=== PATIENT | female | born 1995 | race Caucasian/White ===

== ENCOUNTER 2018-02-18 17:37 | Emergency (ER) | payer MEDICAID ==
--- NOTE | 2018-02-18 19:20 | ED ---
General Adult HPI - General Chief complaint: GI Bleed Stated complaint: vomiting blood Time Seen by Provider: 02/18/18 18:45 Source: patient, family, RN notes reviewed Mode of arrival: ambulatory Limitations: no limitations - History of Present Illness Initial comments: 22-year-old female without any past medical history presents to the emergency department for a chief complaint of hematemesis 3. Patient states this occurred about 2 hours prior to arrival. She states that she did have some abdominal pain at that time and felt nauseous. However, patient states she is feeling much better at this time. She did have any abdominal pain or nausea at this time. She states she has not vomited since. Patient denies a history of similar occurrences. She denies history of ulcers. She denies any blood in the stool. Patient has no other complaints at this time including shortness of breath, chest pain, headache, or visual changes. - Related Data Home Medications Medication Instructions Recorded Confirmed Norgestimate-Ethinyl Estradiol 1 tab PO DAILY 02/18/18 02/18/18 [Ortho Tri-Cyclen 28 Tablet] Previous Rx's Medication Instructions Recorded Famotidine [Pepcid] 20 mg PO BID #20 tablet 02/18/18 Allergies Allergy/AdvReac Type Severity Reaction Status Date / Time Penicillins Allergy Rash/Hives Verified 02/18/18 19:09 Review of Systems ROS Statement: Those systems with pertinent positive or pertinent negative responses have been documented in the HPI. ROS Other: All systems not noted in ROS Statement are negative. Past Medical History Past Medical History: No Reported History History of Any Multi-Drug Resistant Organisms: None Reported Past Surgical History: No Surgical Hx Reported Past Psychological History: No Psychological Hx Reported Smoking Status: Never smoker Past Alcohol Use History: None Reported Past Drug Use History: None Reported General Exam Limitations: no limitations General appearance: alert, in no apparent distress (She does well-appearing, pleasant and cooperative.) Head exam: Present: atraumatic, normocephalic, normal inspection Eye exam: Present: normal appearance, PERRL, EOMI. Absent: scleral icterus, conjunctival injection, periorbital swelling ENT exam: Present: normal exam, mucous membranes moist Neck exam: Present: normal inspection, full ROM. Absent: tenderness, meningismus, lymphadenopathy Respiratory exam: Present: normal lung sounds bilaterally. Absent: respiratory distress, wheezes, rales, rhonchi, stridor Cardiovascular Exam: Present: regular rate, normal rhythm, normal heart sounds. Absent: systolic murmur, diastolic murmur, rubs, gallop, clicks GI/Abdominal exam: Present: soft, normal bowel sounds. Absent: distended, tenderness (No tenderness noted of the abdomen whatsoever), guarding, rebound, rigid Neurological exam: Present: alert, oriented X3, CN II-XII intact Psychiatric exam: Present: normal affect, normal mood Course Vital Signs 02/18/18 02/18/18 17:45 19:30 Temperature 97.5 F L 98.5 F Pulse Rate 89 70 Respiratory 20 18 Rate Blood Pressure 107/72 112/76 O2 Sat by Pulse 98 96 Oximetry Medical Decision Making - Medical Decision Making 22-year-old female presents for hematemesis 3 earlier today. Patient states she did have pain and nausea at that time. However since her arrival in the emergency department all symptoms have completely resolved. She states she is having much better. She states she wants to go home and does not want any testing done. Vitals are within acceptable limits. Patient is normotensive. She does not have any tenderness on exam. I did discuss recommended workup such as x-ray and labs to evaluate hemoglobin. Patient refuses this stating she feels febrile follow-up with primary. Patient will be discharged home with Pepcid. She will also be given the number to the GI specialists. She will return if she has any worsening symptoms. This was discussed with Dr. Reyes. Disposition Clinical Impression: Hematemesis Disposition: HOME SELF-CARE Condition: Good Instructions: Gastrointestinal Bleeding (ED), Hematemesis (ED) Additional Instructions: Please follow up with primary care in 1-2 days. You may also follow-up with GI. Take Pepcid as directed. Return to the emergency department if you have any worsening symptoms Prescriptions: Famotidine [Pepcid] 20 mg PO BID #20 tablet Is patient prescribed a controlled substance at d/c from ED?: No Referrals: Junaid Welsh DO [Primary Care Provider] - 1-2 days Louann Bae MD [STAFF PHYSICIAN] - 1-2 days Time of Disposition: 19:19
[2018-02-18 19:31] VITALS: BP 112/76; PULSE 70; RESP 18; TEMP 98.5
== END 2018-02-18 19:30 | disposition home or self-care (01) ==
LOC: EC 17:37
DX: K92.0 Hematemesis (principal); R10.9 Unspecified abdominal pain; Z88.0 Allergy status to penicillin; Z79.3 Long term (current) use of hormonal contraceptives
CPT/HCPCS: 99284

== ENCOUNTER → 2019-03-24 | Outpatient (CLI) | payer OTHER ==
--- NOTE | 2019-03-24 16:36 | XR ---
EXAMINATION TYPE: XR lumbar spine 2 or 3V DATE OF EXAM: 03/24/2019 COMPARISON: None HISTORY: Back pain TECHNIQUE: Three-view lumbar spine FINDINGS: There 5 lumbar-type vertebral bodies. Pedicles are intact. Disc heights are preserved. Vert ebral body heights are preserved. Alignment is unremarkable. IMPRESSION: 1. Normal three-view lumbar spine
--- NOTE | 2019-03-24 16:36 | XR ---
EXAMINATION TYPE: XR thoracic spine complete DATE OF EXAM: 03/24/2019 COMPARISON: None HISTORY: Muscle strain fashion tendon TECHNIQUE: Thoracic spine is examined in 3 projections. FINDINGS: There are 12 thoracic type vertebral bodies. Pedicles are intact. Disc heights are preserve d. Vertebral body heights are preserved. Alignment is normal. IMPRESSION: 1. No acute osseous abnormality.
== END | disposition home or self-care (01) ==
LOC: RADXRMAIN 16:09
PROVIDERS: ATTEND Emergency Medicine
DX: M54.6 Pain in thoracic spine (principal); S39.012A Strain of muscle, fascia and tendon of lower back, initial encounter
CPT/HCPCS: 72072; 72100

== ENCOUNTER 2019-07-13 08:12 | Emergency (ER) | payer OTHER, MEDICAID ==
[2019-07-13 08:17] VITALS: BP 116/66; PULSE 104; RESP 18; TEMP 98.2
--- NOTE | 2019-07-13 08:34 | ED ---
Back Pain HPI - General Source: patient Limitations: physical limitation <Maria D Meyer - Last Filed: 07/13/19 08:35> <Silvia Boo - Last Filed: 07/14/19 02:23> - General Chief Complaint: Back Pain/Injury Stated Complaint: Back pain Time Seen by Provider: 07/13/19 08:20 - History of Present Illness Initial Comments: 24-year-old female presenting today for chief complaint of low back pain. Patient denies any fevers loss of bowel bladder control urinary retention loss of sensation or weakness of the lower extremities. Patient states the pain does not radiate at this time she states she used to have a slight sensation in her right buttock that has resolved. 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 Denies IVDU, fevers, cancer. Patient appears well on arrival ambulatory. No distress. Afebrile. Patient requesting MRI as her original from PCP was cancelled se condary to covid 19. Patient has no additional complaints, no new injury/symptoms. (Maria D Meyer) - Related Data Home Medications Medication Instructions Recorded Confirmed Norgestimate-Ethinyl Estradiol 1 tab PO DAILY 02/18/18 02/18/18 [Ortho Tri-Cyclen 28 Tablet] Previous Rx's Medication Instructions Recorded Famotidine [Pepcid] 20 mg PO BID #20 tablet 02/18/18 Allergies Allergy/AdvReac Type Severity Reaction Status Date / Time Penicillins Allergy Rash/Hives Verified 07/13/19 08:17 Review of Systems ROS Other: All systems not noted in ROS Statement are negative. <Maria D Meyer - Last Filed: 07/13/19 08:35> ROS Other: All systems not noted in ROS Statement are negative. <Silvia Boo - Last Filed: 07/14/19 02:23> ROS Statement: Those systems with pertinent positive or pertinent negative responses have been documented in the HPI. Past Medical History Past Medical History: No Reported History History of Any Multi-Drug Resistant Organisms: None Reported Past Surgical History: No Surgical Hx Reported Past Psychological History: No Psychological Hx Reported Smoking Status: Never smoker Past Alcohol Use History: None Reported Past Drug Use History: None Reported <Maria D Meyer - Last Filed: 07/13/19 08:35> General Exam Limitations: physical limitation <Maria D Meyer - Last Filed: 07/13/19 08:35> - General Exam Comments Initial Comments: General: The patient is awake and alert, in no distress Eye: Pupils are equal, round and reactive to light, extra-ocular movements are intact. No nystagmus. There is normal conjunctiva bilaterally. No signs of icterus. Cardiovascular: There is a regular rate and rhythm. No murmur, rub or gallop is appreciated. Respiratory: Lungs are clear to auscultation, respirations are non-labored, breath sounds are equal. No wheezes, stridor, rales, or rhonchi. Musculoskeletal: Normal ROM, no tenderness. Strength 5/5 of the LE b/l. Sensation intact of the LE b/l including saddle region. Radial pulses equal bilaterally 2+. Neurological: A&O x 3. CN II-XII intact grossly, There are no obvious motor or sensory deficits. Coordination appears grossly intact. Speech is normal. Skin: Skin is warm and dry and no rashes or lesions are noted. Psychiatric: Cooperative, appropriate mood & affect, normal judgment. (Maria D Meyer) Course Vital Signs 07/13/19 08:15 Temperature 98.2 F Pulse Rate 104 H Respiratory 18 Rate Blood Pressure 116/66 O2 Sat by Pulse 100 Oximetry Medical Decision Making <Maria D Meyer - Last Filed: 07/13/19 08:35> <Silvia Boo - Last Filed: 07/14/19 02:23> - Medical Decision Making 24-year-old female for back pain for months. No IV drug use fevers. No cancer. Midline and paravertebral discomfort. Patient has full strength of legs, sensation. Able to ambulate without difficulty. (-) SLR. Patient has previous plain films. No new injury. Requesting MRI. Emergent MRI not warranted given patient has no PE findings, nor expressed symptoms concerning for cauda equina. Recommend MRI on outpatient basis. Return parameters and importance of f/u discussed. Ptient dischargd after toradol appearing well. Discussed case with Dr. Boo who is agreeable. (Maria D Meyer) I was available for consultation in the emergency department. The history and physical exam were done by the midlevel provider. I was consulted for this patients care. I reviewed the case with the midlevel provider and based on their presentation of the patient, I agree with the assessment, medical decision making and plan of care as documented. Chart was dictated using [employer] dictation software. Attempts were made to correct any dictation errors however some typographical errors may persist. Patient was seen during a national state of emergency due to the Covid-19 pandemic. (Silvia Boo) Disposition Is patient prescribed a controlled substance at d/c from ED?: No Time of Disposition: 08:33 <Maria D Meyer - Last Filed: 07/13/19 08:35> <Silvia Boo - Last Filed: 07/14/19 02:23> Clinical Impression: Chronic low back pain, Low back pain Disposition: HOME SELF-CARE Condition: Good Instructions (If sedation given, give patient instructions): Back Pain (ED), Lower Back Exercises (ED) Additional Instructions: Please use medication as discussed. Please follow-up with family doctor in the next 2 days. Please return to emergency room if the symptoms increase or worsen or for any other concerns. Referrals: Junaid Welsh DO [Primary Care Provider] - 1-2 days
[2019-07-13] MEDS ORDERED: KETOROLAC 30 MG/ML 1 ML VIAL IM STA (08:36)
== END 2019-07-13 09:03 | disposition home or self-care (01) ==
LOC: EC 08:12
DX: M54.5 Low back pain (principal); G89.29 Other chronic pain; Z88.0 Allergy status to penicillin; Z79.3 Long term (current) use of hormonal contraceptives
CPT/HCPCS: 96372; 99283; J1885

== ENCOUNTER 2019-11-12 13:25 | Emergency (ER) | payer MEDICAID, OTHER ==
[2019-11-12 13:32] VITALS: BP 114/82; PULSE 77; TEMP 98.6
[2019-11-12 13:44] VITALS: RESP 16
--- NOTE | 2019-11-12 14:08 | XR ---
EXAMINATION TYPE: XR chest 1V portable DATE OF EXAM: 11/12/2019 COMPARISON: NONE HISTORY: Pneumonia. Cough. TECHNIQUE: FINDINGS: Heart and mediastinum are normal. Lungs are clear. Diaphragm is normal. Bony thorax appears normal. IMPRESSION: Normal chest
--- NOTE | 2019-11-12 14:14 | ED ---
General Adult HPI - General Chief complaint: Upper Respiratory Infection Stated complaint: Covid symptoms, +flu & pneumonia Time Seen by Provider: 11/12/19 13:34 Source: patient, RN notes reviewed Mode of arrival: ambulatory Limitations: no limitations - History of Present Illness Initial comments: 24-year-old female without any significant past medical history presents to the emergency room for a chief complaint of cough. Patient reports she had a sore throat starting 2 days ago and then developed a cough today. States she was short of breath this morning however that has resolved. Patient reports she is very congested and has a runny nose. Patient works at [employer]. Patient was seen by urgent care today had a negative strep test as well as negative flu. She was clinically diagnosed with pneumonia and prescribed unknown medication. However she did not want to take this without a chest x-ray. COVID Test is pending from urgent care. Patient states she came here because she thought we had rapid Covid testing and the urgent care would take 3 days. Patient is also here for a chest x-ray. She does not retesting of Covid or strep. At this time denies any chest pain or shortness of breath. Denies any fevers over the past few days.Patient has no other complaints at this time including shortness of breath, chest pain, abdominal pain, nausea or vomiting, headache, or visual changes. - Related Data Home Medications Medication Instructions Recorded Confirmed Norgestimate-Ethinyl Estradiol 1 tab PO DAILY 02/18/18 02/18/18 [Ortho Tri-Cyclen 28 Tablet] Previous Rx's Medication Instructions Recorded Famotidine [Pepcid] 20 mg PO BID #20 tablet 02/18/18 Allergies Allergy/AdvReac Type Severity Reaction Status Date / Time Penicillins Allergy Rash/Hives Verified 11/12/19 13:28 Review of Systems ROS Statement: Those systems with pertinent positive or pertinent negative responses have been documented in the HPI. ROS Other: All systems not noted in ROS Statement are negative. Past Medical History Past Medical History: No Reported History History of Any Multi-Drug Resistant Organisms: None Reported Past Surgical History: No Surgical Hx Reported Past Psychological History: No Psychological Hx Reported Smoking Status: Vaper Past Alcohol Use History: Occasional Past Drug Use History: Marijuana General Exam Limitations: no limitations General appearance: alert, in no apparent distress Head exam: Present: atraumatic, normocephalic, normal inspection Eye exam: Present: normal appearance, PERRL, EOMI. Absent: scleral icterus, conjunctival injection, periorbital swelling ENT exam: Present: normal exam, normal oropharynx, mucous membranes moist, TM's normal bilaterally, normal external ear exam Neck exam: Present: normal inspection, full ROM Respiratory exam: Present: normal lung sounds bilaterally. Absent: respiratory distress, wheezes, rales, rhonchi, stridor Cardiovascular Exam: Present: regular rate, normal rhythm, normal heart sounds. Absent: systolic murmur, diastolic murmur, rubs, gallop, clicks GI/Abdominal exam: Present: soft, normal bowel sounds. Absent: distended, tenderness, guarding, rebound, rigid Neurological exam: Present: alert Course Vital Signs 11/12/19 11/12/19 13:28 13:40 Temperature 98.6 F Pulse Rate 77 Respiratory 18 16 Rate Blood Pressure 114/82 O2 Sat by Pulse 99 Oximetry Medical Decision Making - Medical Decision Making Vitals are stable. Patient is afebrile. She has 99% on room air. No respiratory distress. Chest x-ray shows a normal chest, no pneumonia. At this time I recommend patient quarantines until she has the result of her Covid test. I did discussed monitoring her symptoms and if she develops significant shortness of breath or chest pain she needs to return to the emergency room. Otherwise she should follow-up with her doctor. Disposition Clinical Impression: Cough Disposition: HOME SELF-CARE Condition: Good Instructions (If sedation given, give patient instructions): Upper Respiratory Infection (ED) Additional Instructions: Please follow up on Covid test from urgent care. Take [id number] cold and flu medications. Please quarantine until you're test results are back. If you have worsening symptoms such as shortness of breath or chest pain return to the emergency room. Is patient prescribed a controlled substance at d/c from ED?: No Referrals: Junaid Welsh DO [Primary Care Provider] - 1-2 days Time of Disposition: 14:13
== END 2019-11-12 14:23 | disposition home or self-care (01) ==
LOC: EC 13:25
DX: R05 Cough (principal); F17.290 Nicotine dependence, other tobacco product, uncomplicated; Z79.3 Long term (current) use of hormonal contraceptives; Z88.0 Allergy status to penicillin
CPT/HCPCS: 71045; 99283

== ENCOUNTER → 2020-11-19 | Outpatient (CLI) | payer MEDICAID ==
--- NOTE | 2020-11-19 10:29 | USB ---
Reason for exam: clinical finding. History: Taking hormonal contraceptives for 6 years. Indicated problem(s): pain in the right breast. Physical Findings: Nurse Summary: Patient complains of pain right breast 2-3 o'clock x 6-9 months, comes and goes (nurse TM). US Breast RT Technologist: Jennyfer Lugo Right complete breast ultrasound includes all four quadrants, the retroareolar region and axilla. Finding demonstrates no cystic or solid lesion seen. Lymph node right axilla. These results were verbally communicated with the patient and result sheet given to the patient on 11/19/20. ASSESSMENT: Benign, BI-RAD 2 RECOMMENDATION: Routine screening mammogram of both breasts at age 37. Manage on a clinical basis with regard to pain.
== END | disposition home or self-care (01) ==
LOC: RADUSWWP 09:50
PROVIDERS: ATTEND Family Medicine
DX: N64.4 Mastodynia (principal)

== ENCOUNTER 2021-02-09 06:44 | Emergency (ER) | payer MEDICAID ==
[2021-02-09 06:48] VITALS: TEMP 98.2
[2021-02-09 07:07] VITALS: BP 129/89; RESP 18
--- NOTE | 2021-02-09 07:26 | ED ---
General Adult HPI - General Chief complaint: Arrhythmia/Palpitations Stated complaint: Palpitations Time Seen by Provider: 02/09/21 06:55 Source: patient Mode of arrival: ambulatory Limitations: no limitations - History of Present Illness Initial comments: 25-year-old female presents to the emergency room for a chief complaint of tachycardia. Patient states hours and she had Covid one month ago she has had tachycardia with activity up to 120 bpm. 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 States the tightness has completely resolved. Patient states she has already talked to her doctor about this and she just had blood work done 3 days ago. States she is supposed to be following up to get an echo.she is denying any associated shortness of breath. Patient has no other complaints at this time including shortness of breath, chest pain, abdominal pain, nausea or vomiting, headache, or visual changes. - Related Data Home Medications Medication Instructions Recorded Confirmed Norgestimate-Ethinyl Estradiol 1 tab PO DAILY 02/18/18 02/18/18 [Ortho Tri-Cyclen 28 Tablet] Previous Rx's Medication Instructions Recorded Famotidine [Pepcid] 20 mg PO BID #20 tablet 02/18/18 Allergies Allergy/AdvReac Type Severity Reaction Status Date / Time Penicillins Allergy Rash/Hives Verified 02/09/21 06:48 Review of Systems ROS Statement: Those systems with pertinent positive or pertinent negative responses have been documented in the HPI. ROS Other: All systems not noted in ROS Statement are negative. Past Medical History Past Medical History: No Reported History History of Any Multi-Drug Resistant Organisms: None Reported Past Surgical History: No Surgical Hx Reported Past Psychological History: No Psychological Hx Reported Smoking Status: Vaper Past Alcohol Use History: Occasional Past Drug Use History: Marijuana General Exam Limitations: no limitations General appearance: alert, in no apparent distress Head exam: Present: atraumatic Eye exam: Present: normal appearance, PERRL, EOMI. Absent: scleral icterus, conjunctival injection ENT exam: Present: normal exam, mucous membranes moist Neck exam: Present: normal inspection, full ROM. Absent: tenderness Respiratory exam: Present: normal lung sounds bilaterally. Absent: respiratory distress, wheezes Cardiovascular Exam: Present: regular rate, normal rhythm, normal heart sounds GI/Abdominal exam: Present: soft, normal bowel sounds. Absent: distended, tenderness Extremities exam: Absent: calf tenderness (no tenderness bilaterally) Course Vital Signs 02/09/21 02/09/21 06:45 07:02 Temperature 98.2 F Pulse Rate 93 78 Respiratory 20 18 Rate Blood Pressure 129/71 129/89 O2 Sat by Pulse 99 95 Oximetry EKG Findings - EKG Comments: EKG Findings:: Normal sinus rhythm, ventricular rate 86, TX interval 122, QTC 452 Medical Decision Making - Medical Decision Making vitals are stable. EKG shows a normal sinus rhythm with a ventricular rate of 86. Patient has not been tachycardic in the emergency room. chest x-ray shows no acute process. Symptoms have been ongoing for 1 month. I did recommend blood work occluding a d-dimer however patient does not wish to do this today. States she just had blood work done outpatient and does not want to repeat this. She would rather continue on the plan to follow up outpatient and get an echo and possibly a Holter monitor. She is agreeable to returning here for any worsening symptoms. Disposition Clinical Impression: Palpitations Disposition: HOME SELF-CARE Condition: Good Instructions (If sedation given, give patient instructions): Heart Palpitations (ED) Additional Instructions: Please follow up with your doctor in 1-2 days. Return to the ER for any worsening symptoms. Is patient prescribed a controlled substance at d/c from ED?: No Referrals: Junaid Welsh DO [Primary Care Provider] - 1-2 days Time of Disposition: 08:05
--- NOTE | 2021-02-09 07:56 | XR ---
EXAMINATION TYPE: XR chest 2V DATE OF EXAM: 02/09/2021 7:26 AM COMPARISON:Chest radiographs from November 12, 2019 CLINICAL INDICATION:Female, 25 years old with history of tightness; TECHNIQUE: Frontal and lateral views of the chest. FINDINGS: Lungs/Pleura: There is no evidence of pleural effusion, focal consolidation, or pneumothorax. Pulmonary vascularity: Unremarkable. Heart/mediastinum: Cardiomediastinal silhouette is unremarkable. Musculoskeletal: No acute osseous pathology. IMPRESSION: No acute cardiopulmonary disease/process.
[2021-02-09 08:10] VITALS: PULSE 64
== END 2021-02-09 08:11 | disposition home or self-care (01) ==
LOC: EC 06:44
DX: R00.2 Palpitations (principal); F17.290 Nicotine dependence, other tobacco product, uncomplicated; F12.90 Cannabis use, unspecified, uncomplicated; Z72.89 Other problems related to lifestyle
CPT/HCPCS: 71046; 93005; 99285

== ENCOUNTER → 2021-03-26 | Outpatient (CLI) | payer MEDICAID ==
--- NOTE | 2021-03-27 14:34 | ECHOF ---
Referral Reason:R06.09 MEASUREMENTS -------- HEIGHT: 165.1 cm WEIGHT: 63.5 kg BP: IVSd: 0.9 cm (0.6 - 1.1) LVIDd: 4.7 cm (3.9 - 5.3) LVPWd: 0.9 cm (0.6 - 1.1) EDV(Teich): 101 ml IVSs: 1.0 cm LVIDs: 3.2 cm LVPWs: 1.6 cm %IVS Thck: 6 % ESV(Teich): 41 ml EF(Teich): 59 % %FS: 31 % SV(Teich): 59 ml RVIDd: 2.2 cm (< 3.3) LALs A4C: 4.6 cm LAAs A4C: 15.6 cm LAESV A-L A4C: 45 ml LAESV MOD A4C: 41 ml LALs A2C: 4.1 cm LAAs A2C: 10.3 cm LAESV A-L A2C: 22 ml LAESV MOD A2C: 20 ml LAESV(A-L): 33 ml LAESV Index (A-L): 19.68 ml/m Ao Diam: 2.4 cm (2.0 - 3.7) LA Diam: 2.6 cm (2.7 - 3.8) AV Cusp: 1.9 cm (1.5 - 2.6) EPSS: 0.6 cm MV E Allen: 0.75 m/s MV DecT: 149 ms MV Dec Hooker: 5.0 m/s MV A Allen: 0.72 m/s MV E/A Ratio: 1.04 MV PHT: 43 ms LVOT Vmax: 0.89 m/s LVOT maxP.16 mmHg AV Vmax: 1.15 m/s AV maxP.25 mmHg TR Vmax: 1.89 m/s TR maxP.26 mmHg RAP: 5.00 mmHg RVSP: 19.26 mmHg MV EF SLOPE: 77.58 mm/s (70 - 150) MV EXCURSION: 22.56 mm (> 18.000) FINDINGS -------- Sinus rhythm. This was a technically adequate study. The left ventricular size is normal. Left ventricular wall thickness is normal. Overall left vent ricular systolic function is normal with, an EF between 55 - 60 %. The diastolic filling pattern is normal for the age of the patient 7.73. The right ventricle is normal in size. Normal LA size by volume 22+/-6 ml/m2. The right atrial size is normal. Interatrial septal aneurysm. The aortic valve is trileaflet and appears structurally normal. There is no evidence of aortic regu rgitation. There is no evidence of aortic stenosis. No mitral regurgitation. Trace tricuspid regurgitation present. There is no evidence of pulmonary hypertension. The right ventricular systolic pressure, as measured by Doppler, is 19.26mmHg. Trace/mild (physiologic) pulmonic regurgitation. The aortic root size is normal. Normal inferior vena cava with normal inspiratory collapse consistent with estimated right atrial pre ssure of 5 mmHg. There is no pericardial effusion. CONCLUSIONS -------- 1. The left ventricular size is normal. 2. Left ventricular wall thickness is normal. 3. Overall left ventricular systolic function is normal with, an EF between 55 - 60 %. 4. The diastolic filling pattern is normal for the age of the patient 7.73 5. Interatrial septal aneurysm. 6. Trace tricuspid regurgitation present. 7. Trace/mild (physiologic) pulmonic regurgitation. BRICKLAYER APPRENTICE: Tonie Marie RDCS
== END | disposition home or self-care (01) ==
LOC: RADECHMAIN 11:34
PROVIDERS: ATTEND Family Medicine
DX: I25.3 Aneurysm of heart (principal); I07.1 Rheumatic tricuspid insufficiency; I37.1 Nonrheumatic pulmonary valve insufficiency
CPT/HCPCS: 93306

== ENCOUNTER → 2022-03-05 | Outpatient (CLI) | payer MEDICAID ==
--- NOTE | 2022-03-05 15:12 | US ---
EXAMINATION TYPE: US pelvis complete transvag DATE OF EXAM: 03/05/2022 COMPARISON: NONE CLINICAL HISTORY: 26-year-old female N94.10 UNSPECIFIED DYSPAREUNIA. TECHNIQUE: Transabdominal sonographic images of the pelvis were acquired. Transvaginal sonographic i mages were medically necessary to better assess anatomy. FINDINGS: EXAM MEASUREMENTS: Uterus: 6.3 x 2.9 x 4.5 cm Endometrial Stripe: 0.1 cm Right Ovary: 2.3 x 1.4 x 1.9 cm for a volume of 3.2 mL Left Ovary: 1.8 x 1.2 x 1.0 cm for a volume of 1.2 mL 1. Uterus: Retroverted and otherwise wnl 2. Endometrium: wnl 3. Right Ovary: wnl 4. Left Ovary: Some follicular change is present. 5. Bilateral Adnexa: wnl 6. Posterior cul-de-sac: wnl IMPRESSION: Retroverted uterus. Small bilateral ovaries. Follicular change noted on the left.
== END | disposition home or self-care (01) ==
LOC: RADUSWWP 12:28
PROVIDERS: ATTEND Family Medicine
DX: N94.10 Unspecified dyspareunia (principal); N85.4 Malposition of uterus
CPT/HCPCS: 76830; 76856

== ENCOUNTER 2024-01-14 15:54 | Emergency (ER) | payer MEDICAID, OTHER ==
[2024-01-14 16:07] VITALS: BP 112/76; RESP 18
--- NOTE | 2024-01-14 16:59 | ED ---
Fever HPI - General Source: patient Mode of arrival: ambulatory Limitations: no limitations <Olvin Vasquez - Last Filed: 01/14/24 16:58> <Silvia Boo - Last Filed: 01/14/24 18:52> - General Chief Complaint: Fever Stated Complaint: fever Time Seen by Provider: 01/14/24 16:58 - History of Present Illness Initial Comments: 28-year-old female presenting with chief complaint of fever. Fever started abruptly at 4 AM today. She admits to shortness of breath, chest heaviness, dizziness. (Olvin Vasquez) - Related Data Home Medications Medication Instructions Recorded Confirmed Norgestimate-Ethinyl Estradiol 1 tab PO DAILY 02/18/18 02/18/18 [Ortho Tri-Cyclen 28 Tablet] Previous Rx's Medication Instructions Recorded Famotidine [Pepcid] 20 mg PO BID #20 tablet 02/18/18 Albuterol Inhaler [Ventolin Hfa 2 puff INHALATION Q4HR #8 gm 01/14/24 Inhaler] Azithromycin [Zithromax Z Pack] 250 mg PO DAILY #4 tab 01/14/24 Allergies Allergy/AdvReac Type Severity Reaction Status Date / Time Penicillins Allergy Rash/Hives Verified 01/14/24 16:03 Review of Systems ROS Other: All systems not noted in ROS Statement are negative. <Olvin Vasquez - Last Filed: 01/14/24 16:58> ROS Other: All systems not noted in ROS Statement are negative. <Silvia Boo - Last Filed: 01/14/24 18:52> ROS Statement: Those systems with pertinent positive or pertinent negative responses have been documented in the HPI. Past Medical History Past Medical History: No Reported History History of Any Multi-Drug Resistant Organisms: None Reported Past Surgical History: No Surgical Hx Reported Past Psychological History: No Psychological Hx Reported Smoking Status: Vaper Past Alcohol Use History: Occasional Past Drug Use History: Marijuana <Olvin Vasquez - Last Filed: 01/14/24 16:58> General Exam Limitations: no limitations <Olvin Vasquez - Last Filed: 01/14/24 16:58> - General Exam Comments Initial Comments: Visual Physical Exam Vital signs reviewed General: Well-appearing, nontoxic, no acute distress. Head: Normocephalic, atraumatic Eyes: PERRLA, EOMI ENT: Airway patent Chest: Nonlabored breathing Skin: No visual rash, normal skin tone Neuro: Alert and oriented 3 Musculoskeletal: No gross abnormalities (Olvin Vasquez) Course Vital Signs 01/14/24 16:03 Temperature 99.1 F Pulse Rate 92 Respiratory 18 Rate Blood Pressure 112/76 O2 Sat by Pulse 97 Oximetry Medical Decision Making <Olvin Vasquez - Last Filed: 01/14/24 16:58> - Medical Decision Making I performed the quick note portion of this visit, electronically signed Olvin Vasquez PA-C (Olvin Vasquez) - Lab Data Lab Results 01/14/24 01/14/24 Range/Units 16:10 16:10 Influenza Type A (PCR) Not Detected (Not Detectd) Influenza Type B (PCR) Not Detected (Not Detectd) RSV (PCR) Not Detected (Not Detectd) SARS-CoV-2 (PCR) Detected A (Not Detectd) Group A Strep (PCR) NOT DETECTED (Not Detectd) Disposition <Olvin Vasquez - Last Filed: 01/14/24 16:58> Is patient prescribed a controlled substance at d/c from ED?: No Time of Disposition: 18:47 <Silvia Boo - Last Filed: 01/14/24 18:52> Clinical Impression: COVID-19, Shortness of breath, Fever, Otitis media Disposition: HOME SELF-CARE Condition: Stable Instructions (If sedation given, give patient instructions): Coronavirus Disease 2019 (COVID-19) Additional Instructions: Please alternate taking 3 tablets of Motrin with 2 tablets of regular strength Tylenol every 4 hours for fever control. Use the inhaler every 4 hours. Take the antibiotics daily. Follow-up with your doctor to ensure that your symptoms have resolved. Return for any new or worsening symptoms Prescriptions: Albuterol Inhaler [Ventolin Hfa Inhaler] 2 puff INHALATION Q4HR #8 gm Azithromycin [Zithromax Z Pack] 250 mg PO DAILY #4 tab Referrals: Junaid Welsh DO [Primary Care Provider] - 1-2 days
--- NOTE | 2024-01-14 17:48 | XR ---
EXAMINATION TYPE: XR chest 2V DATE OF EXAM: 01/14/2024 5:07 PM COMPARISON: 03/08/2021 CLINICAL INDICATION: Female, 28 years old with history of fever, SOB, TECHNIQUE: XR chest 2V view(s) obtained. FINDINGS: The heart size is normal. The pulmonary vasculature is normal. The lungs are clear. IMPRESSION: 1. No acute pulmonary process. [facility], , 01/14/2024 5:46 PM
[2024-01-14] MEDS: AZITHROMYCIN 500 MG TAB PO STA (18:59)
[2024-01-14] MEDS: KETOROLAC 15 MG/ML 1 ML VIAL IM STA (18:59)
[2024-01-14 19:04] VITALS: PULSE 90; TEMP 98.5
== END 2024-01-14 20:59 | disposition home or self-care (01) ==
LOC: EC 15:54
DX: U07.1 COVID-19 (principal); H66.90 Otitis media, unspecified, unspecified ear; F17.290 Nicotine dependence, other tobacco product, uncomplicated; Z88.0 Allergy status to penicillin
CPT/HCPCS: 99284 ×2; 96372 ×2; 87651; 87636; 71046; J1885